=== PATIENT | male | born 1995 | race Caucasian/White ===

== ENCOUNTER 2016-12-10 01:27 | Emergency (ER) | payer MEDICAID ==
[2016-12-10 01:28] VITALS: BMI 23.5
[2016-12-10 01:44] VITALS: TEMP 97.7; O2SAT 100
[2016-12-10] MEDS ORDERED: Sodium Chloride 0.9% 500 ML IV STA (01:57)
--- NOTE | 2016-12-10 02:04 | ED PDOC ---
Arrival/HPI - General Chief Complaint: GI Problem Time Seen by Provider: 12/10/16 01:34 - History of Present Illness Narrative History of Present Illness (Text): 12/10/16 02:01 CC: N/V x2 after eating a "outside" ham and cheese sandwich Pt is a 21yo M w/ a no PMhx who is coming to the ED w/ a history of 2 episodes of NBNB vomiting after eating a ham sandwich from "outside the house" states he has an exquisitely sensitive stomach. No one else ate similar food. No one else at home is sick/has similar symptoms. states he was supposed to get an EGD last year for similar symptoms, but never got the exam done because he "felt better" . Denies fevers/chills, BARRIENTOS, CP, SOB, abdominal pain, dysuria/freq/urg, or lower extremity pain/swelling. Past Medical History - Past History Past History: No Previous - Infectious Disease Hx of Infectious Diseases: None - Tetanus Immunization Tetanus Immunization: Unknown - Psychiatric Hx Depression: No Hx Emotional Abuse: No Hx Physical Abuse: No Hx Substance Use: No - Past Surgical History Past Surgical History: No Previous - Anesthesia Hx Anesthesia: No Hx Anesthesia Reactions: No Hx Malignant Hyperthermia: No - Suicidal Assessment Feels Threatened In Home Enviroment: No Family/Social History Family/Social History: No Known Family HX Smoking Status: Never Smoked Hx Alcohol Use: No Hx Substance Use: No Hx Substance Use Treatment: No Allergies/Home Meds Allergies/Adverse Reactions: Allergies No Known Allergies Allergy (Verified 12/10/16 01:36) Review of Systems - Review of Systems Constitutional: absent: Fatigue, Weight Change Eyes: absent: Vision Changes ENT: absent: Hearing Changes Respiratory: absent: SOB, Cough Cardiovascular: absent: Chest Pain, Palpitations Gastrointestinal: Diarrhea, Nausea, Vomiting. absent: Abdominal Pain, Stool Changes, Constipation, Appetite Changes, Hematochezia Genitourinary Male: absent: Dysuria Musculoskeletal: absent: Arthralgias Skin: absent: Rash Neurological: absent: Headache, Dizziness Endocrine: absent: Diaphoresis Hemo/Lymphatic: absent: Adenopathy Psychiatric: Anxiety Physical Exam Vital Signs Temp Pulse Resp BP Pulse Ox 12/10/16 01:39 97.7 F 80 20 141/57 L 100 Temperature: Afebrile Blood Pressure: Normal Pulse: Regular Respiratory Rate: Normal Appearance: Positive for: Well-Appearing, Non-Toxic, Comfortable. No: Ill- Appearing, Unkept, Uncomfortable, Cachectic Pain Distress: None Mental Status: Positive for: Alert and Oriented X 3 - Systems Exam Head: Present: Atraumatic Pupils: Present: PERRL Extroacular Muscles: Present: EOMI Conjunctiva: Present: Normal Ears: Present: Normal Mouth: Present: Moist Mucous Membranes Pharnyx: No: ERYTHEMA, EXUDATE, TONSILS ENLARGED Nose (External): No: Abrasion Neck: Present: Normal Range of Motion. No: Meningeal Signs Respiratory/Chest: Present: Clear to Auscultation, Good Air Exchange. No: Respiratory Distress, Accessory Muscle Use, Wheezes, Decreased Breath Sounds, Rales, Retracting, Rhonchi, Tachypneic, Tender to Palpation Cardiovascular: Present: Regular Rate and Rhythm, Normal S1, S2, Peripheal Pulses Present. No: Murmurs, Irregular Rhythm, Tachycardic, Bradycardic, Rub, Gallop, Muffled Abdomen: No: Tenderness, Distention, Normal Bowel Sounds, Peritoneal Signs, Rebound, Guarding, McBurney's Point Tender, Rovsing's Sign Present, Hernias, Feeding Tubes, Ostomy Tubes, Mass/Organomegaly, Scars Back: Present: Normal Inspection. No: CVA Tenderness Upper Extremity: Present: Normal Inspection. No: Cyanosis, Edema Lower Extremity: Present: Normal Inspection. No: Edema Neurological: Present: GCS=15, CN II-XII Intact, Speech Normal Skin: Present: Warm Medical Decision Making ED Course and Treatment: 12/10/16 02:03 DDx: Gastroenteritis vs sensitive stomach Will give Protonix, Carafate, 1L NS, Zofran VSS; patient in no distress; abdominal exam benign; patient is anxious appearing with family at bedside Dispo and reassess 12/10/16 02:06 12/10/16 03:45 patient is sleeping comfortably in bed in no acute distress 12/10/16 04:12 Patient is stable for d.c as per Dr. Grullon The patient will get 10 pills of 4mg Zofran and 10 pills of 40mg Protonix He should follow up with his GI doctor as soon as possible as he had a scope scheduled that he did not complete - Medication Orders Current Medication Orders: Discontinued Medications Sodium Chloride (Sodium Chloride 0.9%) 500 mls @ 999 mls/hr IV .Q31M STA Stop: 12/10/16 02:27 Last Admin: 12/10/16 02:20 Dose: 999 mls/hr eMAR Start Stop Document 12/10/16 02:20 OCS (Rec: 12/10/16 02:20 OCS [id number]) Intravenous Solution Start Date 12/10/16 Start Time 02:20 Ondansetron HCl (Zofran Inj) 4 mg IVP STAT STA Stop: 12/10/16 01:58 Last Admin: 12/10/16 02:20 Dose: 4 mg IVP Administration Document 12/10/16 02:20 OCS (Rec: 12/10/16 02:20 OCS [id number]) Charges for Administration # of IVP Administrations 1 Pantoprazole Sodium (Protonix Inj) 40 mg IVP STAT STA Stop: 12/10/16 01:58 Last Admin: 12/10/16 02:20 Dose: 40 mg IVP Administration Document 12/10/16 02:20 OCS (Rec: 12/10/16 02:20 OCS [id number]) Charges for Administration # of IVP Administrations 1 Sucralfate (Carafate Tab) 1 gm PO STAT STA Stop: 12/10/16 01:58 Last Admin: 12/10/16 02:20 Dose: Not Given Non-Admin Reason: Patient Refused Disposition/Present on Arrival - Present on Arrival Any Indicators Present on Arrival: No History of DVT/PE: No History of Uncontrolled Diabetes: No Urinary Catheter: No History of Decub. Ulcer: No History Surgical Site Infection Following: None - Disposition Have Diagnosis and Disposition been Completed?: Yes Diagnosis: Indigestion Disposition: HOME/ ROUTINE Disposition Time: 04:13 Patient Plan: Discharge Patient Problems: Current Active Problems Problem Status Onset Indigestion Acute Condition: FAIR Additional Instructions: Please follow up with your GI doctor as soon as possible You were given prescriptions for Reglan and Protonix; please use them as you need them It was a pleasure taking care of you. Please feel better. Prescriptions: Metoclopramide HCl [Reglan] 10 mg PO Q8H PRN #10 tablet PRN Reason: Nausea/Vomiting Pantoprazole [Protonix EC Tab] 20 mg PO DAILY PRN #10 ect PRN Reason: Acid Reflux Forms: [facility] (Portuguese)
[2016-12-10 04:38] VITALS: BP 136/79; PULSE 77; RESP 18
== END 2016-12-10 04:40 | disposition home or self-care (01) ==
LOC: ED 01:27
DX: R10.13 Epigastric pain (principal)
CPT/HCPCS: 96374; 96375; 99283; C9113; J2405; J7040

== ENCOUNTER 2017-05-18 07:56 | Emergency (ER) | payer MEDICAID ==
[2017-05-18 07:57] VITALS: BMI 23.5
[2017-05-18 08:16] VITALS: RESP 18; O2SAT 98
--- NOTE | 2017-05-18 08:46 | ED PDOC ---
Arrival/HPI - General Chief Complaint: Dental Pain Time Seen by Provider: 05/18/17 08:17 Historian: Patient - History of Present Illness Narrative History of Present Illness (Text): 05/18/17 08:45 A 21 year old male presents to the emergency department complaining of toothache to left upper 1st molar. Patient reports he saw the dentist and has been taking Amoxicillin for five days, but tooth pain continuing to get worse. Patient with facial swelling. Patient is set up to see his oral surgeon tomorrow. Patient denies drug use, smoking, drinking alcohol. Patient denies any fever, sore throat or any other complaints at this time. Symptom Onset: Sudden Symptom Course: Unchanged Activities at Onset: Rest Context: Home Associated Symptoms (Text): 05/18/17 09:38 Approximately one week of left upper posterior tooth ache. Seen by the dentist last week and has been on amoxicillin for 5 days, but the pain and swelling have continued. Patient has an appointment with the oral surgeon tomorrow. Past Medical History - Provider Review Nursing Documentation Reviewed: Yes - Past History Past History: No Previous - Infectious Disease Hx of Infectious Diseases: None - Tetanus Immunization Tetanus Immunization: Unknown - Psychiatric Hx Depression: No Hx Emotional Abuse: No Hx Physical Abuse: No Hx Substance Use: No - Past Surgical History Past Surgical History: No Previous - Anesthesia Hx Anesthesia: No Hx Anesthesia Reactions: No Hx Malignant Hyperthermia: No - Suicidal Assessment Feels Threatened In Home Enviroment: No Family/Social History - Physician Review Nursing Documentation Reviewed: Yes Family/Social History: No Known Family HX Smoking Status: Never Smoked Hx Alcohol Use: No Hx Substance Use: No Hx Substance Use Treatment: No Allergies/Home Meds Allergies/Adverse Reactions: Allergies No Known Allergies Allergy (Verified 05/18/17 08:15) Home Medications: Home Meds Medication Instructions Recorded Confirmed Amoxicillin [Amoxil 250 mg Cap] 500 mg PO Q8 05/18/17 05/18/17 Review of Systems - Physician Review All systems were reviewed & negative as marked: Yes - Review of Systems Constitutional: absent: Fatigue, Fevers ENT: Other (left upper 1st molar tooth pain). absent: Sore Throat Respiratory: Normal Cardiovascular: Normal Gastrointestinal: Normal Skin: Normal Neurological: Normal Physical Exam Vital Signs Reviewed: Yes Vital Signs Temp Pulse Resp BP Pulse Ox 05/18/17 08:12 98.9 F 90 18 118/79 98 05/18/17 07:57 98.9 F 90 18 118/79 98 Temperature: Afebrile Blood Pressure: Normal Pulse: Regular Respiratory Rate: Normal Appearance: Positive for: Well-Appearing, Non-Toxic, Comfortable Pain Distress: None Mental Status: Positive for: Alert and Oriented X 3 - Systems Exam Head: Present: Atraumatic, Normocephalic Pupils: Present: PERRL Extroacular Muscles: Present: EOMI Conjunctiva: Present: Normal Ears: Present: NORMAL TM, Normal Canal. No: Erythema, TM Bulging Mouth: Present: Moist Mucous Membranes, Other (left cheek swelling, mild tenderness, no erythema, no warmth; left 1st molor root canal surrounding erythema) Pharnyx: No: ERYTHEMA, EXUDATE, TONSILS ENLARGED Neck: Present: Normal Range of Motion Respiratory/Chest: Present: Clear to Auscultation, Good Air Exchange. No: Respiratory Distress, Accessory Muscle Use Cardiovascular: Present: Regular Rate and Rhythm, Normal S1, S2. No: Murmurs Abdomen: No: Tenderness, Distention, Peritoneal Signs Back: Present: Normal Inspection Upper Extremity: Present: Normal Inspection. No: Cyanosis, Edema Lower Extremity: Present: Normal Inspection. No: Edema Neurological: Present: GCS=15, CN II-XII Intact, Speech Normal Skin: Present: Warm, Dry, Normal Color. No: Rashes Psychiatric: Present: Alert, Oriented x 3, Normal Insight, Normal Concentration Medical Decision Making ED Course and Treatment: 05/18/17 08:42 Impression: A 21 year old male with left upper 1st molar tooth pain, facial swelling. Plan: -- labs -- Cleocin -- Reassess and disposition Prior Visits: Notes and results from previous visits were reviewed. Patient was last seen in the emergency department on 12/11/15 for evaluation of vomiting. Progress Notes: - Lab Interpretations Lab Results: 05/18/17 08:55 Lab Results 05/18/17 08:55: WBC 6.2, RBC 4.64, Hgb 13.6 L, Hct 40.2 L, MCV 86.6, MCH 29.3, MCHC 33.8, RDW 12.8, Plt Count 254, MPV 10.7, Gran % 59.8, Lymph % (Auto) 26.5, [place] % (Auto) 11.8 H, Eos % (Auto) 1.6, Baso % (Auto) 0.3, Gran # 3.70, Lymph # (Auto) 1.6, [place] # (Auto) 0.7 H, Eos # (Auto) 0.1, Baso # (Auto) 0.02 I have reviewed the lab results: Yes - Medication Orders Current Medication Orders: Discontinued Medications Clindamycin Phosphate 900 mg/ (Sodium Chloride) 106 mls @ 106 mls/hr IVPB STAT STA PRN Reason: Protocol Stop: 05/18/17 09:34 Last Admin: 05/18/17 09:00 Dose: 106 mls/hr eMAR Start Stop Document 05/18/17 09:00 SRE (Rec: 05/18/17 09:01 SRE [id number]) Intravenous Solution Start Date 05/18/17 Start Time 09:00 End Date 05/18/17 End time 10:00 Total Infusion Time 60 - Scribe Statement The provider has reviewed the documentation as recorded by the Wendyibcielo Akers Provider Scribe Attestation: All medical record entries made by the Scribe were at my direction and personally dictated by me. I have reviewed the chart and agree that the record accurately reflects my personal performance of the history, physical exam, medical decision making, and the department course for this patient. I have also personally directed, reviewed, and agree with the discharge instructions and disposition. Disposition/Present on Arrival - Present on Arrival Any Indicators Present on Arrival: No History of DVT/PE: No History of Uncontrolled Diabetes: No Urinary Catheter: No History of Decub. Ulcer: No History Surgical Site Infection Following: None - Disposition Have Diagnosis and Disposition been Completed?: Yes Diagnosis: Abscessed tooth Disposition: HOME/ ROUTINE Disposition Time: 09:51 Patient Plan: Discharge Condition: GOOD Discharge Instructions (ExitCare): Tooth Abscess (DC), Dental Pain (DC) Additional Instructions: Tylenol or Advil as directed on bottle as needed. Follow-up with the dentist. Follow up in ER as needed. Prescriptions: Clindamycin [Cleocin] 300 mg PO Q6 #40 cap Referrals: Cindy Jha MD [Primary Care Provider] - Follow up with primary Forms: [email or web address] (Syrian), SCHOOL NOTE
[2017-05-18 09:34] LABS: BASO # 0.02 K/mm3 (0.0-2.0); BASO % 0.3 % (0.0-3.0); EOS # 0.1 (0.0-0.7); EOS % 1.6 % (1.5-5.0); GRAN # 3.7 (1.4-6.5); GRAN % 59.8 % (50.0-68.0); HEMOGLOBIN 13.6 g/dL (14.0-18.0); LYMPH # 1.6 (1.2-3.4); LYMPH % 26.5 % (22.0-35.0); MEAN CELL VOLUME 86.6 fl (80.0-105.0); MEAN CORPUSCULAR HEMOGLOBIN 29.3 pg (25.0-35.0); MEAN CORPUSCULAR HGB CONC 33.8 g/dl (31.0-37.0); MEAN PLATELET VOLUME 10.7 fl (7.0-11.0); MONO # 0.7 (0.1-0.6); MONO % 11.8 % (1.0-6.0); RBC 4.64 10^6/uL (3.5-6.1); RED CELL DISTRIBUTION WIDTH 12.8 % (11.5-14.5); WHITE BLOOD COUNT 6.2 10^3/ul (4.5-11.0)
[2017-05-18 10:02] VITALS: BP 124/76; PULSE 80; TEMP 98.6
== END 2017-05-18 10:03 | disposition home or self-care (01) ==
LOC: ED 07:56
DX: K04.7 Periapical abscess without sinus (principal)

== ENCOUNTER 2017-05-22 23:15 | Emergency (ER) | payer MEDICAID ==
[2017-05-22 23:15] VITALS: BMI 23.5
[2017-05-22 23:25] VITALS: RESP 18; TEMP 98.1; O2SAT 100
--- NOTE | 2017-05-22 23:40 | ED PDOC ---
Arrival/HPI <Daniel Ashford - Last Filed: 05/23/17 00:00> - General Historian: Patient - History of Present Illness Time/Duration: 1-3 hours (2 hours) Symptom Onset: Gradual Symptom Course: Unchanged Activities at Onset: Light Context: Home <Blake Jeffries - Last Filed: 05/23/17 01:35> - General Chief Complaint: GI Problem Time Seen by Provider: 05/22/17 23:34 - History of Present Illness Narrative History of Present Illness (Text): 05/22/17 23:39 Von Mota is a 21 year old male who presents to the Emergency department complaining of nausea and vomiting x 2 hours. Patient states he is currently being treated for dental caries with Cleocin and Flagyl which started today, has been experiencing vomiting for the past 2 hours with 2 episodes of non- bilious/non-bloody vomiting prior to arrival. Patient states he did not have any food/dinner tonight and took the Cleocin and Flagyl together for the first time, which he quickly vomited after 1 hour. Patient denies any abdominal pain, fever, chills, or any other complaints. (Blake Jeffries) Past Medical History - Provider Review Nursing Documentation Reviewed: Yes - Past History Past History: No Previous - Infectious Disease Hx of Infectious Diseases: None - Tetanus Immunization Tetanus Immunization: Unknown - Psychiatric Hx Depression: No Hx Emotional Abuse: No Hx Physical Abuse: No Hx Substance Use: No - Past Surgical History Past Surgical History: No Previous - Anesthesia Hx Anesthesia: No Hx Anesthesia Reactions: No Hx Malignant Hyperthermia: No - Suicidal Assessment Feels Threatened In Home Enviroment: No <Blake Jeffries - Last Filed: 05/23/17 01:35> Family/Social History - Physician Review Nursing Documentation Reviewed: Yes Family/Social History: Unknown Family HX Smoking Status: Never Smoked Hx Alcohol Use: No Hx Substance Use: No Hx Substance Use Treatment: No <Blake Jeffries - Last Filed: 05/23/17 01:35> Allergies/Home Meds <Daniel Ashford - Last Filed: 05/23/17 00:00> <Blake Jeffries - Last Filed: 05/23/17 01:35> Allergies/Adverse Reactions: Allergies No Known Allergies Allergy (Verified 05/22/17 23:25) Home Medications: Home Meds Medication Instructions Recorded Confirmed metroNIDAZOLE [Flagyl] 1 tab PO TID 05/22/17 05/22/17 Review of Systems - Physician Review All systems were reviewed & negative as marked: Yes - Review of Systems Constitutional: absent: Fevers Respiratory: absent: SOB, Cough Cardiovascular: absent: Chest Pain Gastrointestinal: Nausea, Vomiting. absent: Abdominal Pain, Diarrhea Genitourinary Male: Normal. absent: Dysuria, Frequency, Hematuria, Urinary Output Changes Musculoskeletal: absent: Back Pain, Neck Pain Skin: absent: Rash Neurological: absent: Headache, Dizziness <Blake Jeffries - Last Filed: 05/23/17 01:35> Physical Exam Vital Signs Reviewed: Yes Temperature: Afebrile Blood Pressure: Hypertensive Pulse: Regular Respiratory Rate: Normal Appearance: Positive for: Well-Appearing, Non-Toxic, Comfortable Pain Distress: None Mental Status: Positive for: Alert and Oriented X 3 - Systems Exam Head: Present: Atraumatic, Normocephalic Pupils: Present: PERRL Extroacular Muscles: Present: EOMI Conjunctiva: Present: Normal Mouth: Present: Moist Mucous Membranes Neck: Present: Normal Range of Motion Respiratory/Chest: Present: Clear to Auscultation, Good Air Exchange. No: Respiratory Distress, Accessory Muscle Use Cardiovascular: Present: Regular Rate and Rhythm, Normal S1, S2. No: Murmurs Abdomen: Present: Tenderness (Tenderness to epigastric region, negative Cedeno' s sign). No: Distention, Peritoneal Signs, Rebound, Guarding Back: Present: Normal Inspection Upper Extremity: Present: Normal Inspection. No: Cyanosis, Edema Lower Extremity: Present: Normal Inspection, Normal ROM, Capillary Refill < 2 s. No: Edema, Deformity Neurological: Present: GCS=15, Speech Normal, Motor Func Grossly Intact, Gait Normal, Memory Normal Skin: Present: Warm, Dry, Normal Color. No: Rashes Psychiatric: Present: Alert, Oriented x 3, Normal Insight, Normal Concentration <Blake Jeffries - Last Filed: 05/23/17 01:35> Vital Signs Temp Pulse Resp BP Pulse Ox 05/22/17 23:22 98.1 F 88 18 158/57 H 100 Medical Decision Making <Daniel Ashford - Last Filed: 05/23/17 00:00> <Blake Jeffries - Last Filed: 05/23/17 01:35> ED Course and Treatment: 05/22/17 23:39 Impression: 21 year old male complaining of nausea and vomiting for 2 hours prior to arrival. Plan: -- Pepcid -- Zofran -- Observe -- Reassess and disposition Progress Notes: 05/23/17 00:16 Pt vomiting while in the ER, will order labs, line, and IV Zofran. 05/23/17 01:32 -Labs are non-significant except potassium 3.4, potassium chloride 20meq po ordered. -Case discussed with ER attending DR. Ashford and labs reviewed together, he suggest to discharge home. -I explained to the patient that he should eat and call his own dentist, return to the ER if he still doesn't feel well. -Discharge home with pepcid, zofran, stay hydrated, follow up with your own pmd and dentist within 24-48 hours, return to the ER for any new or worsening signs or symptoms. (Blake Jeffries) - Lab Interpretations Lab Results: 05/23/17 00:25 05/23/17 00:25 Lab Results 05/23/17 00:25: Sodium 140, Potassium 3.4 L, Chloride 101, Carbon Dioxide 24, Anion Gap 18, BUN 15, Creatinine 0.9, Est GFR ( Amer) > 60, Est GFR (Non- Af Amer) > 60, Random Glucose 127 H, Calcium 10.6 H, Total Bilirubin 0.4, AST 34 , ALT 35, Alkaline Phosphatase 75, Total Protein 7.8, Albumin 4.6, Globulin 3.2 , Albumin/Globulin Ratio 1.4, Lipase 49 05/23/17 00:25: WBC 9.6 D, RBC 4.80, Hgb 14.1, Hct 40.8 L, MCV 85.0, MCH 29.4, MCHC 34.6, RDW 12.7, Plt Count 337, MPV 10.8, Gran % 69.7 H, Lymph % (Auto) 19.9 L, [place] % (Auto) 9.2 H, Eos % (Auto) 0.8 L, Baso % (Auto) 0.4, Gran # 6.71 H, Lymph # (Auto) 1.9, [place] # (Auto) 0.9 H, Eos # (Auto) 0.1, Baso # (Auto) 0.04 - Medication Orders Current Medication Orders: Discontinued Medications Famotidine (Pepcid) 20 mg PO STAT STA Stop: 05/22/17 23:50 Last Admin: 05/22/17 23:55 Dose: Not Given Non-Admin Reason: Patient Refused Sodium Chloride (Sodium Chloride 0.9%) 1,000 mls @ 999 mls/hr IV .Q1H1M STA Stop: 05/23/17 01:15 Last Admin: 05/23/17 01:01 Dose: 999 mls/hr eMAR Start Stop Document 05/23/17 01:01 PRAVIN (Rec: 05/23/17 01:02 [id number] Intravenous Solution Start Date 05/23/17 Start Time 00:15 End Date 05/23/17 End time 01:16 Total Infusion Time 61 Ondansetron HCl (Zofran Odt) 4 mg PO STAT STA Stop: 05/22/17 23:50 Last Admin: 05/22/17 23:45 Dose: 4 mg Ondansetron HCl (Zofran Inj) 4 mg IVP STAT STA Stop: 05/23/17 00:16 Last Admin: 05/23/17 00:15 Dose: 4 mg IVP Administration Document 05/23/17 00:15 PRAVIN (Rec: 05/23/17 01:01 [id number] Charges for Administration # of IVP Administrations 1 - PA / [employer]ESSION[employer] / Resident Statement / has reviewed & agrees with the documentation as recorded. <Daniel Ashford - Last Filed: 05/23/17 00:00> - PA / [employer] PROFESSIONAL / Resident Statement / has reviewed & agrees with the documentation as recorded. - Scribe Statement The provider has reviewed the documentation as recorded by the Scribe <Blake Jeffries - Last Filed: 05/23/17 01:35> - Scribe Statement Fiona Bragg Provider Scribe Attestation: All medical record entries made by the Scribe were at my direction and personally dictated by me. I have reviewed the chart and agree that the record accurately reflects my personal performance of the history, physical exam, medical decision making, and the department course for this patient. I have also personally directed, reviewed, and agree with the discharge instructions and disposition. (Blake Jeffries) Disposition/Present on Arrival <MakedaDaniel - Last Filed: 05/23/17 00:00> - Present on Arrival Any Indicators Present on Arrival: No History of DVT/PE: No History of Uncontrolled Diabetes: No Urinary Catheter: No History of Decub. Ulcer: No History Surgical Site Infection Following: None - Disposition Have Diagnosis and Disposition been Completed?: Yes Disposition Time: 23:54 Patient Plan: Discharge <Blake Jeffries - Last Filed: 05/23/17 01:35> - Disposition Diagnosis: Nausea and vomiting in adult, Medication side effect Disposition: HOME/ ROUTINE Patient Problems: Current Active Problems Problem Status Onset Medication side effect Acute Nausea and vomiting in adult Acute Condition: IMPROVED Additional Instructions: -Discharge home with pepcid, zofran, stay hydrated, follow up with your own pmd and dentist within 24-48 hours, return to the ER for any new or worsening signs or symptoms. Prescriptions: Famotidine [Pepcid] 20 mg PO BID #20 tab Ondansetron [Zofran] 4 mg PO Q8H PRN #10 tab PRN Reason: Other Referrals: Emma Seals MD [Medical Doctor] - Follow up with primary Forms: WORK NOTE
[2017-05-23] MEDS ORDERED: Sodium Chloride 0.9% 1,000 ML IV STA (00:15)
[2017-05-23 00:54] LABS: BASO # 0.04 K/mm3 (0.0-2.0); BASO % 0.4 % (0.0-3.0); EOS # 0.1 (0.0-0.7); EOS % 0.8 % (1.5-5.0); GRAN # 6.71 (1.4-6.5); GRAN % 69.7 % (50.0-68.0); HEMOGLOBIN 14.1 g/dL (14.0-18.0); LYMPH # 1.9 (1.2-3.4); LYMPH % 19.9 % (22.0-35.0); MEAN CORPUSCULAR HEMOGLOBIN 29.4 pg (25.0-35.0); MEAN CORPUSCULAR HGB CONC 34.6 g/dl (31.0-37.0); MEAN PLATELET VOLUME 10.8 fl (7.0-11.0); MONO # 0.9 (0.1-0.6); MONO % 9.2 % (1.0-6.0); RBC 4.8 10^6/uL (3.5-6.1); RED CELL DISTRIBUTION WIDTH 12.7 % (11.5-14.5); WHITE BLOOD COUNT 9.6 10^3/ul (4.5-11.0)
[2017-05-23 00:59] LABS: ALB/GLOB RATIO 1.4 (1.1-1.8); ALBUMIN 4.6 g/dL (3.0-4.8); ALT/SGPT 35 U/L (7-56); AST/SGOT 34 U/L (17-59); BLOOD UREA NITROGEN 15 mg/dL (7-21); CALCIUM 10.6 mg/dL (8.4-10.5); GFR AFRICAN-AMERICAN > 60; GFR NON-AFRICAN AMERICAN > 60; LIPASE 49 U/L (23-300)
[2017-05-23] MEDS ORDERED: Potassium Chloride 20 mEq ER Tab PO STA (01:27)
[2017-05-23 05:48] VITALS: BP 135/65; PULSE 84
== END 2017-05-23 01:48 | disposition home or self-care (01) ==
LOC: ED 23:15
DX: R11.2 Nausea with vomiting, unspecified (principal); T36.8X5A Adverse effect of other systemic antibiotics, initial encounter; Y92.9 Unspecified place or not applicable
CPT/HCPCS: 80053; 83690; 85025; 96361; 96374; 99284; J2405; J7040

== ENCOUNTER 2018-02-13 11:34 | Emergency (ER) | payer MEDICAID ==
[2018-02-13 11:35] VITALS: BMI 23.5
[2018-02-13 11:51] VITALS: TEMP 97.9; O2SAT 99
[2018-02-13] MEDS ORDERED: Sodium Chloride 0.9% 1,000 ML IV STA (12:18)
[2018-02-13 12:30] LABS: BASO # 0.02 K/mm3 (0.0-2.0); BASO % 0.2 % (0.0-3.0); EOS % 0.3 % (1.5-5.0); GRAN # 8.46 (1.4-6.5); GRAN % 79.9 % (50.0-68.0); HEMOGLOBIN 15.4 g/dL (14.0-18.0); LYMPH # 1.4 (1.2-3.4); LYMPH % 13.3 % (22.0-35.0); MEAN CORPUSCULAR HEMOGLOBIN 29.2 pg (25.0-35.0); MEAN PLATELET VOLUME 11.2 fl (7.0-11.0); MONO # 0.7 (0.1-0.6); MONO % 6.3 % (1.0-6.0); PH,URINE 8.5 (4.7-8.0); RBC 5.27 10^6/uL (3.5-6.1); URINE BILIRUBIN NEGATIVE (NEGATIVE); URINE BLOOD NEGATIVE (NEGATIVE); URINE GLUCOSE (UA) NEGATIVE (NEGATIVE); URINE LEUKOCYTE ESTERASE NEGATIVE Leu/uL (NEGATIVE); URINE PROTEIN NEGATIVE mg/dL (<30 mg/dL); URINE UROBILINOGEN 0.2 E.U./dL (<1 E.U./dL); WHITE BLOOD COUNT 10.6 10^3/uL (4.5-11.0)
[2018-02-13 12:32] LABS: URINE APPEARANCE CLEAR (CLEAR); URINE COLOR LIGHT YELLOW (YELLOW)
[2018-02-13 12:42] LABS: ALB/GLOB RATIO 1.7 (1.1-1.8); ALBUMIN 5.1 g/dL (3.0-4.8); ALT/SGPT 30 U/L (7-56); AST/SGOT 25 U/L (17-59); BLOOD UREA NITROGEN 11 mg/dL (7-21); CALCIUM 10.4 mg/dL (8.4-10.5); GFR NON-AFRICAN AMERICAN > 60; LIPASE 67 U/L (23-300)
--- NOTE | 2018-02-13 14:12 | ED PDOC ---
Arrival/HPI - General Chief Complaint: GI Problem Time Seen by Provider: 02/13/18 11:55 Historian: Patient - History of Present Illness Narrative History of Present Illness (Text): 22 year old male with past medical history of acid reflux presents to the emergency department with sister complaining of one episode of vomiting this morning. States that his grandmother this morning and he became very emotional, causing an episode of vomiting. States he has a very sensitive stomach, vomits often, and has followed up with GI with a normal endoscopy a few months ago. Asking for more medicine for his reflux; states he lost his last prescription. Denies fevers, chills, abdominal pain, diarrhea, constipation, urinary symptoms, headache, vision changes, dizziness, chest pain, shortness of breath, back pain, neck pain, weakness, numbness, paresthesias, or any other associated complaints. Past Medical History - Provider Review Nursing Documentation Reviewed: Yes - Past History Past History: No Previous - Infectious Disease Hx of Infectious Diseases: None - Tetanus Immunization Tetanus Immunization: Unknown - Psychiatric Hx Depression: No Hx Emotional Abuse: No Hx Physical Abuse: No Hx Substance Use: No - Past Surgical History Past Surgical History: No Previous - Anesthesia Hx Anesthesia: No Hx Anesthesia Reactions: No Hx Malignant Hyperthermia: No - Suicidal Assessment Feels Threatened In Home Enviroment: No Family/Social History - Physician Review Nursing Documentation Reviewed: Yes Family/Social History: No Known Family HX Smoking Status: Never Smoked Hx Alcohol Use: No Hx Substance Use: No Hx Substance Use Treatment: No Allergies/Home Meds Allergies/Adverse Reactions: Allergies No Known Allergies Allergy (Verified 02/13/18 11:51) Review of Systems - Physician Review All systems were reviewed & negative as marked: Yes - Review of Systems Constitutional: Normal. absent: Fevers Eyes: Normal. absent: Vision Changes, Photophobia ENT: Normal. absent: Sore Throat, Sinus Congestion Respiratory: Normal. absent: SOB, Cough Cardiovascular: Normal. absent: Chest Pain, Palpitations, Syncope Gastrointestinal: Nausea, Vomiting, Appetite Changes. absent: Abdominal Pain, Constipation, Diarrhea, Hematochezia, Hematemesis Genitourinary Male: Normal. absent: Dysuria, Frequency Musculoskeletal: Normal. absent: Back Pain, Neck Pain Skin: Normal. absent: Rash Neurological: Normal. absent: Headache, Dizziness, Focal Weakness, Gait Changes, Disequilibrium Endocrine: Normal Hemo/Lymphatic: Normal Psychiatric: Normal Physical Exam Vital Signs Reviewed: Yes Vital Signs Temp Pulse Resp BP Pulse Ox 02/13/18 11:49 97.9 F 96 H 18 123/78 99 Temp Pulse Resp BP Pulse Ox 97.9 F 88 16 122/71 99 02/13/18 11:49 02/13/18 14:30 02/13/18 14:30 02/13/18 14:30 02/13/18 14:30 Temperature: Afebrile Blood Pressure: Normal Pulse: Regular Respiratory Rate: Normal Appearance: Positive for: Well-Appearing, Non-Toxic, Comfortable Pain Distress: None Mental Status: Positive for: Alert and Oriented X 3 - Systems Exam Head: Present: Atraumatic, Normocephalic Pupils: Present: PERRL Extroacular Muscles: Present: EOMI Conjunctiva: Present: Normal Mouth: Present: Moist Mucous Membranes Pharnyx: Present: Normal. No: ERYTHEMA, EXUDATE, TONSILS ENLARGED Nose (External): Present: Atraumatic Nose (Internal): Present: Normal Inspection Neck: Present: Normal Range of Motion. No: Meningeal Signs, MIDLINE TENDERNESS Respiratory/Chest: Present: Clear to Auscultation, Good Air Exchange. No: Respiratory Distress, Accessory Muscle Use Cardiovascular: Present: Regular Rate and Rhythm, Normal S1, S2, Peripheal Pulses Present. No: Murmurs Abdomen: Present: Normal Bowel Sounds. No: Tenderness, Distention, Peritoneal Signs, Rebound, Guarding Back: Present: Normal Inspection Upper Extremity: Present: Normal Inspection, Normal ROM, NORMAL PULSES, Neurovascularly Intact, Capillary Refill < 2s. No: Cyanosis, Edema Lower Extremity: Present: Normal Inspection, NORMAL PULSES, Neurovascularly Intact, Capillary Refill < 2 s. No: Edema Neurological: Present: GCS=15, CN II-XII Intact, Speech Normal, Motor Func Grossly Intact, Normal Sensory Function, Gait Normal Skin: Present: Warm, Dry, Normal Color. No: Rashes Psychiatric: Present: Alert, Oriented x 3, Normal Insight, Normal Concentration, Normal Affect, Normal Mood Medical Decision Making ED Course and Treatment: Initial Plan: * CBC, CMP * Lipase * UA, culture * IVF * Zofran * Pepcid * Reassess and Disposition 13:45 Patient reports complete resolution of symptoms after medications. Tolerated PO without difficulty. No vomiting. Asking for discharge home. Plan of care discussed with patient, and strict instructions given regarding prescriptions, importance of follow up, and signs to return to Emergency Department, to include abdominal pain, worsening nausea and vomiting, urinary symptoms, or any other new/worsening symptoms. Patient verbalizes understanding of discussion. Patient A&Ox3, ambulating with steady gait, stable for discharge home. - Lab Interpretations Lab Results: 02/13/18 12:05 02/13/18 12:05 Lab Results 02/13/18 12:05: Sodium 140, Potassium 3.9, Chloride 104, Carbon Dioxide 26, Anion Gap 13, BUN 11, Creatinine 0.8, Est GFR ( Amer) > 60, Est GFR (Non- Af Amer) > 60, Random Glucose 104, Calcium 10.4, Total Bilirubin 0.6, AST 25, ALT 30, Alkaline Phosphatase 68, Total Protein 8.1, Albumin 5.1 H, Globulin 3.0, Albumin/Globulin Ratio 1.7, Lipase 67 02/13/18 12:05: Urine Color Light yellow, Urine Appearance Clear, Urine pH 8.5, Ur Specific [place] 1.015, Urine Protein Negative, Urine Glucose (UA) Negative, Urine Ketones Negative, Urine Blood Negative, Urine Nitrate Negative, Urine Bilirubin Negative, Urine Urobilinogen 0.2, Ur Leukocyte Esterase Negative 02/13/18 12:05: WBC 10.6, RBC 5.27, Hgb 15.4, Hct 45.3, MCV 86.0, MCH 29.2, MCHC 34.0, RDW 13.0, Plt Count 251, MPV 11.2 H, Gran % 79.9 H, Lymph % (Auto) 13.3 L, Travis % (Auto) 6.3 H, Eos % (Auto) 0.3 L, Baso % (Auto) 0.2, Gran # 8.46 H, Lymph # (Auto) 1.4, Travis # (Auto) 0.7 H, Eos # (Auto) 0.0, Baso # (Auto) 0.02 I have reviewed the lab results: Yes Interpretation: All labs normal - Medication Orders Current Medication Orders: Discontinued Medications Famotidine (Pepcid) 20 mg IVP STAT STA Stop: 02/13/18 12:19 Last Admin: 02/13/18 12:25 Dose: 20 mg IVP Administration Document 02/13/18 12:25 SZA (Rec: 02/13/18 12:25 [id number] Charges for Administration # of IVP Administrations 1 Sodium Chloride (Sodium Chloride 0.9%) 1,000 mls @ 999 mls/hr IV .Q1H1M STA Stop: 02/13/18 13:18 Last Admin: 02/13/18 12:25 Dose: 999 mls/hr eMAR Start Stop Document 02/13/18 12:25 SZA (Rec: 02/13/18 12:25 [id number]) Intravenous Solution Start Date 02/13/18 Start Time 12:25 End Date 02/13/18 End time 13:25 Total Infusion Time 60 Ondansetron HCl (Zofran Inj) 4 mg IVP STAT STA Stop: 02/13/18 12:19 Last Admin: 02/13/18 12:24 Dose: 4 mg IVP Administration Document 02/13/18 12:24 SZA (Rec: 02/13/18 12:25 [id number]) Charges for Administration # of IVP Administrations 1 Disposition/Present on Arrival - Present on Arrival Any Indicators Present on Arrival: No History of DVT/PE: No History of Uncontrolled Diabetes: No Urinary Catheter: No History of Decub. Ulcer: No History Surgical Site Infection Following: None - Disposition Have Diagnosis and Disposition been Completed?: Yes Diagnosis: Vomiting, Acid reflux Disposition: HOME/ ROUTINE Disposition Time: 13:45 Patient Plan: Discharge Condition: IMPROVED Discharge Instructions (ExitCare): Acid Reflux (Gastroesophageal Reflux Disease), Adult (DC), Nausea and Vomiting, Adult (DC) Additional Instructions: Take pepcid every 12 hours as needed Take omeprazole daily Take zofran every 8 hours as needed for vomiting followup with GI within 2 days Followup with primary within 2 days Return to ER with any new/worsening symptoms Prescriptions: Famotidine [Pepcid] 20 mg PO Q12H PRN #30 tab PRN Reason: acid reflux Omeprazole 20 mg PO DAILY #30 tablet. Ondansetron HCl [Zofran] 4 mg PO Q8H PRN #6 tablet PRN Reason: vomit Referrals: Fidelina Frances MD [Medical Doctor] - [place] [facility] [place] [facility] [place] - Follow up with primary Emma Seals MD [Medical Doctor] - Follow up with primary Forms: [employer] (Zimbabwean), WORK NOTE
[2018-02-13 14:50] VITALS: BP 122/71; PULSE 88; RESP 16
== END 2018-02-13 14:50 | disposition home or self-care (01) ==
LOC: ED 11:34
DX: K21.9 Gastro-esophageal reflux disease without esophagitis (principal); R11.10 Vomiting, unspecified
CPT/HCPCS: 80053; 81003; 83690; 85025; 96361; 96374; 96375; 99283; J2405; J7030

== ENCOUNTER 2018-02-22 09:18 | Emergency (ER) | payer MEDICAID ==
[2018-02-22 09:18] VITALS: BMI 23.5
--- NOTE | 2018-02-22 09:22 | ED PDOC ---
Arrival/HPI - General Chief Complaint: Abdominal Pain Time Seen by Provider: 02/22/18 09:30 Historian: Patient - History of Present Illness Narrative History of Present Illness (Text): 02/22/18 10:13 A 22 year old male, whose past medical history includes acid reflux, presents to the emergency department complaining of right lower quadrant pain x5 hours. Patient states he awoke from sleep with acute onset of sharp right lower quadrant pain without radiation. Patient reports associated nausea and brown non-bloody diarrhea x2. Patient also states he has has not taken any pain medication. Note, Patient was seen here on 02/13 by me for vomitingx1 with associated anxiety secondary to the passing of his grandmother and was di scharged home with a prescription for pepcid and omeprazole, which he has not taken. Patient states his symptoms had resolved until now. Patient has been seen here in the ED multiple times for vomiting and reflux, states he has a "sensitive stomach". Patient denies any fever, chills, vomiting, urinary symptoms, testicular pain, testicular swelling, penile discharge, back pain, headache, dizziness, or any other complaints. PMD: Cindy Corona Time/Duration: 4-6 hours Symptom Onset: Gradual Symptom Course: Unchanged Activities at Onset: Light Context: Home Past Medical History - Provider Review Nursing Documentation Reviewed: Yes - Past History Past History: No Previous - Infectious Disease Hx of Infectious Diseases: None - Tetanus Immunization Tetanus Immunization: Unknown - Psychiatric Hx Depression: No Hx Emotional Abuse: No Hx Physical Abuse: No Hx Substance Use: No - Past Surgical History Past Surgical History: No Previous - Anesthesia Hx Anesthesia: No Hx Anesthesia Reactions: No Hx Malignant Hyperthermia: No - Suicidal Assessment Feels Threatened In Home Enviroment: No Family/Social History - Physician Review Nursing Documentation Reviewed: Yes Family/Social History: No Known Family HX Smoking Status: Never Smoked Hx Alcohol Use: No Hx Substance Use: No Hx Substance Use Treatment: No Allergies/Home Meds Allergies/Adverse Reactions: Allergies No Known Allergies Allergy (Verified 02/13/18 11:51) Review of Systems - Physician Review All systems were reviewed & negative as marked: Yes - Review of Systems Constitutional: Normal. absent: Fevers, Other (chills) Eyes: Normal. absent: Vision Changes ENT: Normal. absent: Sinus Congestion Respiratory: Normal Cardiovascular: Normal Gastrointestinal: Abdominal Pain (right lower quadrant pain), Diarrhea (brown, non-bloody diarrhea x2), Nausea. absent: Vomiting Genitourinary Male: Normal. absent: Urinary Output Changes Musculoskeletal: Normal. absent: Back Pain, Neck Pain Skin: Normal. absent: Rash, Skin Lesions Neurological: Normal. absent: Headache, Dizziness Endocrine: Normal Hemo/Lymphatic: Normal Psychiatric: Normal Physical Exam Vital Signs Reviewed: Yes Temperature: Afebrile Blood Pressure: Normal Pulse: Regular Respiratory Rate: Normal Appearance: Positive for: Well-Appearing Pain Distress: None Mental Status: Positive for: Alert and Oriented X 3 - Systems Exam Head: Present: Atraumatic, Normocephalic Pupils: Present: PERRL Extroacular Muscles: Present: EOMI Conjunctiva: Present: Normal Ears: Present: Normal Mouth: Present: Moist Mucous Membranes Pharnyx: Present: Normal. No: ERYTHEMA, EXUDATE, TONSILS ENLARGED Nose (External): Present: Atraumatic Nose (Internal): Present: Normal Inspection Neck: Present: Normal Range of Motion. No: Meningeal Signs, MIDLINE TENDERNESS, Paraspinal Tenderness Respiratory/Chest: Present: Clear to Auscultation, Good Air Exchange. No: Respiratory Distress, Accessory Muscle Use Cardiovascular: Present: Regular Rate and Rhythm, Normal S1, S2. No: Murmurs Abdomen: Present: Tenderness (Tenderness to right lower quadrant), Normal Bowel Sounds. No: Distention, Peritoneal Signs, Rebound, Guarding Back: Present: Normal Inspection. No: CVA Tenderness, Midline Tenderness, Paraspinal Tenderness Upper Extremity: Present: Normal Inspection, Normal ROM, NORMAL PULSES, Neurovascularly Intact, Capillary Refill < 2s. No: Cyanosis, Edema, Temperature Abnormalties Lower Extremity: Present: Normal Inspection, NORMAL PULSES, Normal ROM, Neurovascularly Intact, Capillary Refill < 2 s. No: Edema, Temperature Abnormalties Neurological: Present: GCS=15, CN II-XII Intact, Speech Normal, Motor Func Grossly Intact, Normal Sensory Function, Gait Normal Skin: Present: Warm, Dry, Normal Color. No: Rashes Lymphatic: No: Cervical Adenopathy Psychiatric: Present: Alert, Oriented x 3, Normal Insight, Normal Concentration, Normal Affect, Normal Mood Medical Decision Making ED Course and Treatment: 02/22/18 10:17 Impression: 22 year old male presents to the emergency department complaining of right lower quadrant pain x5 hours. Initial Plan: -- CT of abdomen and pelvis with PO and IV contrast -- CBC, CMP, Lipase -- Coags -- UA, culture -- Pepcid -- Toradol -- Zofran -- IVF -- Reassess and disposition Prior Visits: Notes and results from previous visits were reviewed. Progress Notes: 11:00 Patient continues to report nausea. Will give IVF and Reglan. 12:00 Patient refusing to drink oral contrast secondary to nausea. Educated that oral contrast is necessary to rule out appendicitis in a patient with his weight and BMI. Patient understands, states he will attempt to drink the rest of the contrast 13:00 Reports resolution of nausea with persistent RLQ pain. Drinking contrast. 14:[address] 14:45 Patient reports complete resolution of symptoms, including abdominal pain. With unremarkable bloodwork and normal CT of abd/pelvis, will discharge home with GI and primary followup. Patient states he will followup with primary and speci alist as recommended. Diagnostic testing results and plan of care discussed with patient. Strict in structions given regarding prescription use, importance of followup, and signs/symptoms to return to ER including worsening abdominal pain, fever, chills, vomiting, or any other new/worsening symptoms. Pt verbalized understanding of discussion. Patient is A&Ox3, ambulating with steady gait, with vital signs stable for discharge. - Lab Interpretations Lab Results: 02/22/18 10:00 02/22/18 10:00 Lab Results 02/22/18 10:00: Sodium 142, Potassium 4.1, Chloride 103, Carbon Dioxide 29, Anion Gap 14, BUN 13, Creatinine 0.8, Est GFR ( Amer) > 60, Est GFR (Non-Af Amer) > 60, Random Glucose 97, Calcium 10.3, Total Bilirubin 0.5, AST 28, ALT 24, Alkaline Phosphatase 58, Total Protein 8.2, Albumin 5.1 H, Globulin 3.1, Albumin/Globulin Ratio 1.6, Amylase 96, Lipase 52 02/22/18 10:00: Urine Color Yellow, Urine Appearance Clear, Urine pH 6.5, Ur Specific [place] 1.025, Urine Protein Negative, Urine Glucose (UA) Negative, Urine Ketones Negative, Urine Blood Negative, Urine Nitrate Negative, Urine Bilirubin Negative, Urine Urobilinogen 0.2, Ur Leukocyte Esterase Negative 02/22/18 10:00: PT 12.9 H, INR 1.12, APTT 28.4 02/22/18 10:00: WBC 5.6 D, RBC 5.32, Hgb 15.6, Hct 46.0, MCV 86.5, MCH 29.3, MCHC 33.9, RDW 12.8, Plt Count 254, MPV 11.0, Gran % 55.8, Lymph % (Auto) 37.1 H , [place] % (Auto) 6.2 H, Eos % (Auto) 0.4 L, Baso % (Auto) 0.5, Gran # 3.14, Lymph # (Auto) 2.1, Jenkins # (Auto) 0.4, Eos # (Auto) 0.0, Baso # (Auto) 0.03 I have reviewed the lab results: Yes Interpretation: All labs normal - RAD Interpretation Narrative RAD Interpretations (Text): 02/22/18 14:46 CT Abd/Pelvis: FINDINGS: LOWER THORAX: Unremarkable. LIVER: Unremarkable. No gross lesion or ductal dilatation. GALLBLADDER AND BILE DUCTS: Unremarkable. PANCREAS: Unremarkable. No gross lesion or ductal dilatation. SPLEEN: Unremarkable. ADRENALS: Unremarkable. No mass. KIDNEYS AND URETERS: Unremarkable. No hydronephrosis. No solid mass. VASCULATURE: Unremarkable. No aortic aneurysm. No aortic atherosclerotic calcification or mural plaque present. BOWEL: Unremarkable. No obstruction. No gross mural thickening. APPENDIX: Normal appendix. PERITONEUM: Unremarkable. No free fluid. No free air. LYMPH NODES: Unremarkable. No enlarged lymph nodes. BLADDER: Unremarkable. REPRODUCTIVE: Unremarkable. BONES: No acute fracture. OTHER FINDINGS: None. IMPRESSION: No acute intra-abdominal findings [employer]: Radiologist - Scribe Statement The provider has reviewed the documentation as recorded by the Kristie Ma All medical record entries made by the Wendyibcielo were at my direction and personally dictated by me. I have reviewed the chart and agree that the record accurately reflects my personal performance of the history, physical exam, medical decision making, and the department course for this patient. I have also personally directed, reviewed, and agree with the discharge instructions and disposition. Disposition/Present on Arrival - Present on Arrival Any Indicators Present on Arrival: No History of DVT/PE: No History of Uncontrolled Diabetes: No Urinary Catheter: No History Surgical Site Infection Following: None - Disposition Have Diagnosis and Disposition been Completed?: Yes Diagnosis: Abdominal pain Disposition: HOME/ ROUTINE Disposition Time: 14:48 Condition: IMPROVED Discharge Instructions (ExitCare): Acute Abdomen (Belly Pain), Nausea and Vomiting, Adult (DC) Additional Instructions: Increase fluids Pepcid as needed Omeprazole daily from prior prescription Followup with GI within 2 days Followup with primary within 2 days Return to ER with any new/worsening symptoms Prescriptions: Famotidine [Pepcid] 20 mg PO Q12H #30 tab Referrals: Froilan Kidd DO [Staff Provider] - Follow up with primary Cindy Jha MD [Family Provider] - Follow up with primary Forms: [employer] (Lithuanian), WORK NOTE
[2018-02-22 09:34] VITALS: RESP 18; TEMP 97.9
[2018-02-22] MEDS ORDERED: Iohexol 240 (50 ml) ONE (09:56)
[2018-02-22 10:24] LABS: BASO # 0.03 K/mm3 (0.0-2.0); BASO % 0.5 % (0.0-3.0); EOS % 0.4 % (1.5-5.0); GRAN # 3.14 (1.4-6.5); GRAN % 55.8 % (50.0-68.0); HEMOGLOBIN 15.6 g/dL (14.0-18.0); LYMPH # 2.1 (1.2-3.4); LYMPH % 37.1 % (22.0-35.0); MEAN CELL VOLUME 86.5 fl (80.0-105.0); MEAN CORPUSCULAR HEMOGLOBIN 29.3 pg (25.0-35.0); MEAN CORPUSCULAR HGB CONC 33.9 g/dl (31.0-37.0); MONO # 0.4 (0.1-0.6); MONO % 6.2 % (1.0-6.0); RBC 5.32 10^6/uL (3.5-6.1); RED CELL DISTRIBUTION WIDTH 12.8 % (11.5-14.5); WHITE BLOOD COUNT 5.6 10^3/uL (4.5-11.0)
[2018-02-22 10:27] LABS: PH,URINE 6.5 (4.7-8.0); URINE APPEARANCE CLEAR (CLEAR); URINE BILIRUBIN NEGATIVE (NEGATIVE); URINE BLOOD NEGATIVE (NEGATIVE); URINE COLOR YELLOW (YELLOW); URINE GLUCOSE (UA) NEGATIVE (NEGATIVE); URINE LEUKOCYTE ESTERASE NEGATIVE Leu/uL (NEGATIVE); URINE PROTEIN NEGATIVE mg/dL (<30 mg/dL); URINE UROBILINOGEN 0.2 E.U./dL (<1 E.U./dL)
[2018-02-22 10:32] LABS: INR 1.12; PARTIAL THROMBOPLASTIN TIME 28.4 Seconds (25.1-36.5); PROTHROMBIN TIME 12.9 SECONDS (9.4-12.5)
[2018-02-22 10:37] LABS: ALB/GLOB RATIO 1.6 (1.1-1.8); ALBUMIN 5.1 g/dL (3.0-4.8); ALT/SGPT 24 U/L (7-56); AMYLASE 96 U/L (35-125); AST/SGOT 28 U/L (17-59); BLOOD UREA NITROGEN 13 mg/dL (7-21); CALCIUM 10.3 mg/dL (8.4-10.5); GFR NON-AFRICAN AMERICAN > 60; LIPASE 52 U/L (23-300)
[2018-02-22] MEDS ORDERED: Iohexol 350 MG/100 ML VIAL ONE (10:59)
[2018-02-22] MEDS ORDERED: Sodium Chloride 0.9% 1,000 ML IV STA (11:40)
--- NOTE | 2018-02-22 14:41 | CT ---
Date of service: 02/22/2018 PROCEDURE: CT Abdomen and Pelvis with contrast HISTORY: rule out appendicitis COMPARISON: 06/24/2015 TECHNIQUE: Contrast dose: 100 cc of Omni 350 Radiation dose: Total exam DLP = 305.65 mGy-cm. This CT exam was performed using one or more of the following dose reduction techniques: Automated exposure control, adjustment of the mA and/or kV according to patient size, and/or use of iterative reconstruction technique. FINDINGS: LOWER THORAX: Unremarkable. LIVER: Unremarkable. No gross lesion or ductal dilatation. GALLBLADDER AND BILE DUCTS: Unremarkable. PANCREAS: Unremarkable. No gross lesion or ductal dilatation. SPLEEN: Unremarkable. ADRENALS: Unremarkable. No mass. KIDNEYS AND URETERS: Unremarkable. No hydronephrosis. No solid mass. VASCULATURE: Unremarkable. No aortic aneurysm. No aortic atherosclerotic calcification or mural plaque present. BOWEL: Unremarkable. No obstruction. No gross mural thickening. APPENDIX: Normal appendix. PERITONEUM: Unremarkable. No free fluid. No free air. LYMPH NODES: Unremarkable. No enlarged lymph nodes. BLADDER: Unremarkable. REPRODUCTIVE: Unremarkable. BONES: No acute fracture. OTHER FINDINGS: None. IMPRESSION: No acute intra-abdominal findings
[2018-02-22 15:25] VITALS: BP 110/56; PULSE 72; O2SAT 100
[2018-02-23] MEDS ORDERED: Albuterol-Ipratrop 3 mg / 0.5 (3 ml) UD ONE (00:49)
== END 2018-02-22 15:28 | disposition home or self-care (01) ==
LOC: ED 09:18
DX: R10.9 Unspecified abdominal pain (principal); K21.9 Gastro-esophageal reflux disease without esophagitis
CPT/HCPCS: 74177; 80053; 81003; 82150; 83690; 85025; 85610; 85730; 87086; 96361; 96374; 96375; 99284; J1885; J2405; J2765; J7030; Q9966; Q9967